=== PATIENT | female | born 1985 | race American Indian/Alaskan Native ===

== ENCOUNTER 2016-10-09 22:33 | Emergency (ER) | payer MEDICAID ==
[2016-10-10] MEDS ORDERED: NORCO 5/325 PO ONE (02:22)
--- NOTE | 2016-10-10 03:01 | Cat Scan Report ---
FINAL REPORT PROCEDURE: CT HEAD/BRAIN WO CON TECHNIQUE: Computerized tomography of the head was performed without contrast material. HISTORY: multiple sz, head injury, headache COMPARISON: No prior studies are available for comparison. FINDINGS: Skull and scalp: Normal. Paranasal sinuses: Normal. Ventricles and subarachnoid spaces: Normal. Cerebrum: No evidence of hemorrhage, acute infarction or mass . Cerebellum and brainstem: No evidence of hemorrhage, acute infarction or mass. Vasculature: Normal. Comments: None. IMPRESSION: Normal Examination
[2016-10-10 03:02] LABS: Anion Gap 15 mmol/L; BUN/Creatinine Ratio 21.11; Blood Urea Nitrogen 19 mg/dL (7-17); Calcium 8.8 mg/dL (8.4-10.2); Carbon Dioxide 19 mmol/L (22-30); Chloride 110.5 mmol/L (98-107); Glucose 97 mg/dL (65-100); Potassium 3.8 mmol/L (3.6-5.0); Sodium 141 mmol/L (137-145)
[2016-10-10 03:03] LABS: Basophils % (Auto) 0.4 % (0.0-1.8); Eosinophils % (Auto) 0.8 % (0.0-4.3); Hematocrit 38.2 % (30.3-42.9); Hemoglobin 12.7 gm/dl (10.1-14.3); Mean Corpuscular HGB Conc 33 % (30-34); Mean Corpuscular Hemoglobin 32 pg (28-32); Mean Corpuscular Volume 97 fl (79-97); Platelet Count 233 K/mm3 (140-440); Red Blood Count 3.94 M/mm3 (3.65-5.03); White Blood Count 9.2 K/mm3 (4.5-11.0)
--- NOTE | 2016-10-10 03:28 | Emergency Department Report ---
ED Seizure HPI - General Chief Complaint: Seizure Stated Complaint: SEIZURE/HEADACHE Time Seen by Provider: 10/10/16 02:10 Source: patient Mode of arrival: Ambulatory Limitations: No Limitations - History of Present Illness Initial Comments: 31-year-old female with a past medical history of seizures and previous tubal ligation presents to the hospital complains of 3 seizures today. Patient states she has complex partial seizures or "staring" seizures. Patient Fell and Hit Her Head during One Episodes Complains of Posterior Headache. Initially 7/10 upon Arrival but Now 4/10. Patient States She Had a Small, but Is Partial Seizure While in the ER Waiting to Be Seen. Her neurologist is Dr. Maravilla. She takes Trileptal, Vimpat, and Topamax for seizure and states she has been compliant. She was recently started on Carbergoline for her pitutary tumor and worries that this new med may be causing her seizure. Patient has had multiple seizures in one day but states this amount is more than usual and atypical. No visual changes, focal weakness or numbness reported. - Related Data Home Medications Medication Instructions Recorded Confirmed Last Taken Cabergoline 0.5 mg PO 2XW 10/10/16 10/10/16 Unknown Folic Acid [Folvite] 2 mg PO QDAY 10/10/16 10/10/16 Unknown Lacosamide [Vimpat] 200 mg PO BID 10/10/16 10/10/16 Unknown Perphenazine [Trilafon] 16 mg PO QDAY 10/10/16 10/10/16 Unknown Topiramate [Topamax] 200 mg PO BID 10/10/16 10/10/16 Unknown Previous Rx's Medication Instructions Recorded Last Taken Type Ibuprofen [Motrin] 800 mg PO Q8HR PRN #30 tablet 10/10/16 Unknown Rx OXcarbazepine [Trileptal] 1 dose PO BID #60 tablet 10/10/16 Unknown Rx Allergies Allergy/AdvReac Type Severity Reaction Status Date / Time No Known Allergies Allergy Verified 02/12/14 23:53 ED Review of Systems ROS: Stated complaint: SEIZURE/HEADACHE Other details as noted in HPI Comment: All other systems reviewed and negative Other: Constitutional: No fevers chills Eyes: No eye pain visual change ENT: No ear pain or throat pain Neck: Denies pain Respiratory: Denies cough wheezing shortness of breath Cardiovascular: Denies chest pain, palpitations, syncope GI: Denies abdominal pain, nausea, vomiting, diarrhea : Denies dysuria, urinary frequency, or urgency Musculoskeletal: Denies back pain, joint swelling Skin: Denies rash, lesions, erythema Neurologic:as per Psychiatric: Denies suicidal ideation, hallucinations ED Past Medical Hx - Past Medical History Previous Medical History?: Yes Hx Seizures: Yes (sees physician Dr. Espinosa) - Surgical History Past Surgical History?: Yes Additional Surgical History: Tubal ligation - Social History Smoking Status: Never Smoker Substance Use Type: None - Medications Home Medications: Home Medications Medication Instructions Recorded Confirmed Last Taken Type Cabergoline 0.5 mg PO 2XW 10/10/16 10/10/16 Unknown History Folic Acid [Folvite] 2 mg PO QDAY 10/10/16 10/10/16 Unknown History Ibuprofen [Motrin] 800 mg PO Q8HR PRN #30 tablet 10/10/16 Unknown Rx Lacosamide [Vimpat] 200 mg PO BID 10/10/16 10/10/16 Unknown History OXcarbazepine [Trileptal] 1 dose PO BID #60 tablet 10/10/16 Unknown Rx Perphenazine [Trilafon] 16 mg PO QDAY 10/10/16 10/10/16 Unknown History Topiramate [Topamax] 200 mg PO BID 10/10/16 10/10/16 Unknown History ED Physical Exam - General Limitations: No Limitations - Other Other exam information: General: No limitations, patient is alert in no acute distress Head exam: Atraumatic, normocephalic Eyes exam: Normal appearance ENT: Moist mucous membrane, normal oropharynx Neck exam: Normal inspection, full range of motion, no meningismus nontender Respiratory exam: Clear to auscultation bilateral, no wheezes, rales, crackles Cardiovascular: Normal rate and rhythm, normal heart sounds Abdomen: Soft, nondistended, and nontender, with normal bowel sounds, no rebound, or guarding Extremity: Full range of motion normal inspection no deformity Back: Normal Inspection, full range of motion, no tenderness Neurologic: Alert, oriented x3, cranial nerves intact, no motor or sensory deficit Psychiatric: normal affect, normal mood Skin: Warm, dry, intact ED Course Vital Signs 10/09/16 10/10/16 10/10/16 22:49 02:38 02:56 Temperature 98.6 F Pulse Rate 78 Respiratory 20 18 18 Rate Blood Pressure 146/97 O2 Sat by Pulse 100 100 Oximetry - Reevaluation(s) Reevaluation #1: 10/10/16 03:30 Patient treated with [place] for her headache. Pain improved 10/10/16 03:36 Reevaluation #2: 10/10/16 03:36 Trileptal 600 mg ordered prior to discharge - Consultations Consultation #1: 10/10/16 03:31 Attempted to contact patient's primary neurologist is Dr. Maravilla however, he does not have answering service and we were only able to leave a voice mail. I then called the neurology stroke team for advice on medication adjustment. Case discussed with neurologist Dr. Chang. Recommended to increase Trileptal to 600 in a.m. and 1200 and p.m. instead of 600 twice a day. Recommend initial 600 dose now prior to discharge and for patient to contact primary neurologist in the morning ED Medical Decision Making - Lab Data Result diagrams: 10/10/16 02:32 10/10/16 02:32 Lab Results 10/10/16 10/10/16 Range/Units 02:32 02:32 WBC 9.2 (4.5-11.0) K/mm3 RBC 3.94 (3.65-5.03) M/mm3 Hgb 12.7 (10.1-14.3) gm/dl Hct 38.2 (30.3-42.9) % MCV 97 (79-97) fl MCH 32 (28-32) pg MCHC 33 (30-34) % RDW 13.0 L (13.2-15.2) % Plt Count 233 (140-440) K/mm3 Lymph % (Auto) 14.3 (13.4-35.0) % [place] % (Auto) 7.0 (0.0-7.3) % Eos % (Auto) 0.8 (0.0-4.3) % Baso % (Auto) 0.4 (0.0-1.8) % Lymph # 1.3 (1.2-5.4) K/mm3 [place] # 0.6 (0.0-0.8) K/mm3 Eos # 0.1 (0.0-0.4) K/mm3 Baso # 0.0 (0.0-0.1) K/mm3 Seg Neutrophils % 77.5 H (40.0-70.0) % Seg Neutrophils # 7.1 (1.8-7.7) K/mm3 Sodium 141 (137-145) mmol/L Potassium 3.8 (3.6-5.0) mmol/L Chloride 110.5 H (98-107) mmol/L Carbon Dioxide 19 L (22-30) mmol/L Anion Gap 15 mmol/L BUN 19 H (7-17) mg/dL Creatinine 0.9 (0.7-1.2) mg/dL Estimated GFR > 60 ml/min BUN/Creatinine Ratio 21.11 % Glucose 97 (65-100) mg/dL Calcium 8.8 (8.4-10.2) mg/dL Magnesium 2.0 (1.7-2.3) mg/dL - Radiology Data Radiology results: report reviewed (ct head: normal) - Medical Decision Making CT head unremarkable. No signs of hyponatremia or hypomagnesemia as cause of seizures. I was unable to contact patient's primary neurologist but neurologist consulting software engineer recommends patient increased her current Trileptal dose. This was explained to patient and she was understanding. Patient encouraged to follow-up with her neurologist and Motrin will be provided for pain - Differential Diagnosis breakthrough seizure, medication noncompliance, intracranial injury Critical Care Time: No Critical care attestation.: If time is entered above; I have spent that time in minutes in the direct care of this critically ill patient, excluding procedure time. ED Disposition Clinical Impression: Recurrent seizures, Complex partial seizure Disposition: DISCHARGED TO HOME OR SELFCARE Is pt being admited?: No Does the pt Need Aspirin: No Condition: Stable Instructions: Epilepsy (ED) Additional Instructions: Take Motrin as needed for pain. I have increased your Trileptal dose as recommended by neurologist. Take trileptal 600mg (1 tab) in the morning and take 1200mg (2 tabs) in the evening. Continue other medication as prescribed and follow-up with the neurologist as soon as possible for evaluation Prescriptions: Ibuprofen [Motrin] 800 mg PO Q8HR PRN #30 tablet PRN Reason: Pain OXcarbazepine [Trileptal] 1 dose PO BID #60 tablet Referrals: YENI SMITH MD [Primary Care Provider] - 3-5 Days STAN MARAVILLA MD [Staff Physician] - 2-3 Days (Neurologist) Time of Disposition: 03:40
[2016-10-10] MEDS ORDERED: TRILEPTAL PO ONE (03:30)
[2016-10-10 05:01] VITALS: BP 136/84
== END 2016-10-10 04:05 | disposition home or self-care (01) ==
LOC: ED 22:33
DX: G40.209 Localization-related (focal) (partial) symptomatic epilepsy and epileptic syndromes with complex partial seizures, not intractable, without status epilepticus (principal)
CPT/HCPCS: 36415; 70450; 80048; 82962; 83735; 85025; 99284

== ENCOUNTER 2021-09-18 17:25 | Inpatient (IN) | payer MEDICAID ==
[2021-09-18] MEDS ORDERED: SODIUM CHLORIDE 0.9% 1000 ML 1,000 ML IV ONE (17:57)
--- NOTE | 2021-09-18 18:28 | Emergency Department Report ---
HPI - General Chief Complaint: Seizure Time Seen by Provider: 09/18/21 17:45 - HPI HPI: This is a 36-year-old -[place] female presents to the emergency department, brought in by her , with complaint of having multiple seizures throughout the morning and early afternoon. Patient has a history of epilepsy and a history of a pituitary tumor. The patient spoke with her neurology service and supposedly had some changes made to her medication to start this evening. However, her became concerned and brought her into the emergency department for further evaluation. Her neurologist is a Dr. Kaba. The patient is on Fycompa, Zonegran, topiramate and Trileptal. When asked how the patient feels she says "I do not know." She later admits to a mild headache. Upon initial presentation she is on the phone, once again, with a nurse for her neurologist. ED Past Medical Hx - Past Medical History Hx Seizures: Yes (sees physician Dr. Espinosa) - Surgical History Additional Surgical History: Tubal ligation - Social History Smoking Status: Never Smoker Substance Use Type: None - Medications Home Medications: Home Medications Medication Instructions Recorded Confirmed Last Taken Type Cabergoline 0.5 mg PO 2XW 10/10/16 10/10/16 Unknown History Folic Acid [Folvite] 2 mg PO QDAY 10/10/16 10/10/16 Unknown History Ibuprofen [Motrin] 800 mg PO Q8HR PRN #30 tablet 10/10/16 Unknown Rx Lacosamide [Vimpat] 200 mg PO BID 10/10/16 10/10/16 Unknown History OXcarbazepine [Trileptal] 1 dose PO BID #60 tablet 10/10/16 Unknown Rx Perphenazine (Nf) [Trilafon] 16 mg PO QDAY 10/10/16 10/10/16 Unknown History Topiramate [Topamax] 200 mg PO BID 10/10/16 10/10/16 Unknown History ED Review of Systems ROS: Stated complaint: SEIZURE Other details as noted in HPI Comment: All other systems reviewed and negative Constitutional: denies: chills, fever Eyes: denies: eye pain, vision change ENT: denies: ear pain, throat pain Respiratory: denies: cough, shortness of breath Cardiovascular: denies: chest pain, palpitations Gastrointestinal: denies: abdominal pain, vomiting Genitourinary: denies: dysuria, discharge Musculoskeletal: denies: back pain, arthralgia Skin: denies: rash, lesions Neurological: headache, other (Seizures) Physical Exam - Physical Exam Vital Signs: Vital Signs 09/18/21 09/18/21 17:41 18:08 Temperature 99.1 F Pulse Rate 104 H Respiratory 16 18 Rate Blood Pressure 170/110 [Left] O2 Sat by Pulse 100 99 Oximetry Physical Exam: GENERAL: The patient is well-developed well-nourished. HENT: Normocephalic. Atraumatic. Patient has moist mucous membranes. EYES: Extraocular motions are intact. Pupils equal reactive to light bilaterally. NECK: Supple. Trachea is midline. CHEST/LUNGS: Clear to auscultation. There is no respiratory distress noted. HEART/CARDIOVASCULAR: Regular. There is no tachycardia. There is no murmur. ABDOMEN: Abdomen is soft, nontender. Patient has normal bowel sounds. There is no abdominal distention. SKIN: Skin is warm and dry. NEURO: The patient is awake, but somewhat confused. She is cooperative with examination. No slurred speech. No facial asymmetry. MUSCULOSKELETAL: There is no tenderness or deformity. There is no limitation range of motion. ED Course Vital Signs 09/18/21 09/18/21 17:41 18:08 Temperature 99.1 F Pulse Rate 104 H Respiratory 16 18 Rate Blood Pressure 170/110 [Left] O2 Sat by Pulse 100 99 Oximetry ED Medical Decision Making - Lab Data Result diagrams: 09/18/21 18:15 09/18/21 18:15 Lab Results 09/18/21 09/18/21 09/18/21 Range/Units 18:15 18:15 18:15 WBC 8.3 (4.5-11.0) K/mm3 RBC 3.92 (3.65-5.03) M/mm3 Hgb 12.9 (10.1-14.3) gm/dl Hct 38.3 (30.3-42.9) % MCV 98 H (79-97) fl MCH 33 H (28-32) pg MCHC 34 (30-34) % RDW 13.6 (13.2-15.2) % Plt Count 315 (140-440) K/mm3 Lymph % (Auto) 10.4 L (13.4-35.0) % [place] % (Auto) 5.3 (0.0-7.3) % Eos % (Auto) 0.1 (0.0-4.3) % Baso % (Auto) 1.0 (0.0-1.8) % Lymph # (Auto) 0.9 L (1.2-5.4) K/mm3 [place] # (Auto) 0.4 (0.0-0.8) K/mm3 Eos # (Auto) 0.0 (0.0-0.4) K/mm3 Baso # (Auto) 0.1 (0.0-0.1) K/mm3 Seg Neutrophils % 83.2 H (40.0-70.0) % Seg Neutrophils # 6.9 (1.8-7.7) K/mm3 Sodium 139 (137-145) mmol/L Potassium 3.4 L (3.6-5.0) mmol/L Chloride 109.3 H (98-107) mmol/L Carbon Dioxide 17 L (22-30) mmol/L Anion Gap 16 mmol/L BUN 13 (7-17) mg/dL Creatinine 1.0 (0.6-1.2) mg/dL Estimated GFR > 60 ml/min BUN/Creatinine Ratio 13 % Glucose 119 H (65-100) mg/dL Calcium 8.7 (8.4-10.2) mg/dL Total Bilirubin 0.20 (0.1-1.2) mg/dL AST 18 (5-40) units/L ALT 17 (7-56) units/L Alkaline Phosphatase 125 (35-129) units/L Total Protein 8.1 (6.3-8.2) g/dL Albumin 4.3 (3.9-5) g/dL Albumin/Globulin Ratio 1.1 % TSH 2.070 (0.270-4.200) mlU/mL HCG, Qual (Negative) Plasma/Serum Alcohol (0-0.07) % 09/18/21 09/18/21 Range/Units 18:15 18:15 WBC (4.5-11.0) K/mm3 RBC (3.65-5.03) M/mm3 Hgb (10.1-14.3) gm/dl Hct (30.3-42.9) % MCV (79-97) fl MCH (28-32) pg MCHC (30-34) % RDW (13.2-15.2) % Plt Count (140-440) K/mm3 Lymph % (Auto) (13.4-35.0) % [place] % (Auto) (0.0-7.3) % Eos % (Auto) (0.0-4.3) % Baso % (Auto) (0.0-1.8) % Lymph # (Auto) (1.2-5.4) K/mm3 [place] # (Auto) (0.0-0.8) K/mm3 Eos # (Auto) (0.0-0.4) K/mm3 Baso # (Auto) (0.0-0.1) K/mm3 Seg Neutrophils % (40.0-70.0) % Seg Neutrophils # (1.8-7.7) K/mm3 Sodium (137-145) mmol/L Potassium (3.6-5.0) mmol/L Chloride (98-107) mmol/L Carbon Dioxide (22-30) mmol/L Anion Gap mmol/L BUN (7-17) mg/dL Creatinine (0.6-1.2) mg/dL Estimated GFR ml/min BUN/Creatinine Ratio % Glucose (65-100) mg/dL Calcium (8.4-10.2) mg/dL Total Bilirubin (0.1-1.2) mg/dL AST (5-40) units/L ALT (7-56) units/L Alkaline Phosphatase (35-129) units/L Total Protein (6.3-8.2) g/dL Albumin (3.9-5) g/dL Albumin/Globulin Ratio % TSH (0.270-4.200) mlU/mL HCG, Qual Negative (Negative) Plasma/Serum Alcohol < 0.01 (0-0.07) % - EKG Data -: EKG Interpreted by [facility] EKG shows normal: sinus rhythm, axis, intervals, QRS complexes, ST-T waves Rate: normal - EKG Data When compared to previous EKG there are: previous EKG unavailable Interpretation: normal EKG - Radiology Data Radiology results: report reviewed CT HEAD WITHOUT CONTRAST INDICATION: Seizures. TECHNIQUE: All CT scans at this location are performed using CT dose reduction for ALARA by means of automated exposure control. COMPARISON: CT 10/10/2016 FINDINGS: HEMORRHAGE: None. EXTRA- AXIAL SPACES: Normal in size and morphology for the patient's age. VENTRICULAR SYSTEM: Normal in size and morphology for the patient's age. BRAIN PARENCHYMA: No acute findings. Faint bilateral basal ganglia calcification is again noted. MIDLINE SHIFT OR HERNIATION: None. ORBITS: Normal as visualized. SOFT TISSUES OF HEAD: Normal. CALVARIUM: Normal. VISUALIZED PARANASAL SINUSES AND MASTOID AIR CELLS: Clear. ADDITIONAL FINDINGS: None. IMPRESSION: 1. No acute intracranial abnormality. 2. Bilateral basal ganglia calcifications similar to the prior. - Medical Decision Making This patient presented to the emergency department with a complaint of having multiple seizures throughout the day. Her family says that she has a history of complex partial seizures and that her seizures are not typical in appearance. At different points the patient had her mother and her at bedside and the patient exhibited some behavior that they said was consistent with her seizures. She does not have an epilepsy history and is on multiple antielliptic medications. Patient's labs have been mostly unremarkable, except for some mild hypokalemia and a bicarb of 17. I attempted to get the patient her nighttime medications in the hopes that it would stop her from having any further seizures. We were able to get her the Trilafon, but she did not get the Topamax or the Oxcarbazapine before she had some of her atypical seizures. Due to the recurrent seizures, and some type of history of a "brain tumor" that appears to be a pituitary tumor, the patient had a CT scan of the head without contrast that did not show any hemorrhage, large vessel occlusion, or any other acute process. Patient will be admitted to the hospital for neurology consultation, continued monitoring, and has been accepted for admission by the hospitalist, Dr. Sanchez. Critical Care Time: No Critical care attestation.: If time is entered above; I have spent that time in minutes in the direct care of this critically ill patient, excluding procedure time. ED Disposition Clinical Impression: Seizure disorder, Recurrent seizures Disposition: ADMITTED INPATIENT Is pt being admited?: Yes Condition: Fair Time of Disposition: 01:30
[2021-09-18 18:32] LABS: Basophils # (Auto) 0.1 K/mm3 (0.0-0.1); Eosinophils % (Auto) 0.1 % (0.0-4.3); Hematocrit 38.3 % (30.3-42.9); Hemoglobin 12.9 gm/dl (10.1-14.3); Lymphocytes # (Auto) 0.9 K/mm3 (1.2-5.4); Lymphocytes % (Auto) 10.4 % (13.4-35.0); Mean Corpuscular HGB Conc 34 % (30-34); Mean Corpuscular Volume 98 fl (79-97); Monocytes # (Auto) 0.4 K/mm3 (0.0-0.8); Monocytes % (Auto) 5.3 % (0.0-7.3); Platelet Count 315 K/mm3 (140-440); Red Blood Count 3.92 M/mm3 (3.65-5.03); Red Cell Distribution Width 13.6 % (13.2-15.2)
[2021-09-18 18:52] LABS: Alanine Aminotransferase 17 units/L (7-56); Albumin 4.3 g/dL (3.9-5); BUN/Creatinine Ratio 13; Blood Urea Nitrogen 13 mg/dL (7-17); Calcium 8.7 mg/dL (8.4-10.2); Hemolysis Index 23
[2021-09-18] MEDS ORDERED: POTASSIUM CHLORIDE ER 20 MEQ TAB PO ONE (19:05)
[2021-09-18] MEDS ORDERED: TOPIRAMATE TAB 200 MG TAB PO SCH ×2 (20:00→22:00)
[2021-09-18] MEDS ORDERED: OXcarbazepine 300 MG TAB PO ONE (20:42)
[2021-09-18] MEDS ORDERED: LORazepam 2 MG/ML VIAL ONE (20:58)
[2021-09-18] MEDS ORDERED: PERPHENAZINE 4 MG TAB PO ONE (21:00)
[2021-09-18] MEDS ORDERED: LORazepam 2 MG/ML VIAL IV ONE ×2 (21:05→23:29)
[2021-09-18] MEDS ORDERED: ZIPRASIDONE MESYLATE 20 MG VIAL IM ONE ×2 (22:02→22:03)
--- NOTE | 2021-09-19 00:03 | Cat Scan Report ---
CT HEAD WITHOUT CONTRAST INDICATION: Seizures. TECHNIQUE: All CT scans at this location are performed using CT dose reduction for ALARA by means of automated e xposure control. COMPARISON: CT 10/10/2016 FINDINGS: HEMORRHAGE: None. EXTRA-AXIAL SPACES: Normal in size and morphology for the patient's age. VENTRICULAR SYSTEM: Normal in size and morphology for the patient's age. BRAIN PARENCHYMA: No acute findings. Faint bilateral basal ganglia calcification is again noted. MIDLINE SHIFT OR HERNIATION: None. ORBITS: Normal as visualized. SOFT TISSUES OF HEAD: Normal. CALVARIUM: Normal. VISUALIZED PARANASAL SINUSES AND MASTOID AIR CELLS: Clear. ADDITIONAL FINDINGS: None. IMPRESSION: 1. No acute intracranial abnormality. 2. Bilateral basal ganglia calcifications similar to the prior. Signer Name: Delvis Dietrich MD Signed: 09/18/2021 11:58 PM Workstation Name: [id number]
[2021-09-19] MEDS ORDERED: MAGNESIUM HYDROXIDE (MOM) ORAL LIQD UDC PO PRN (01:08)
[2021-09-19] MEDS ORDERED: ONDANSETRON 4 MG/2 ML INJ IV PRN (01:08)
[2021-09-19] MEDS ORDERED: ACETAMINOPHEN 325 MG TAB PO PRN (01:08)
[2021-09-19] MEDS ORDERED: MORPHINE 2 MG/1 ML INJ IV PRN (01:08)
[2021-09-19] MEDS ORDERED: MORPHINE 4 MG/1 ML INJ IV PRN (01:08)
--- NOTE | 2021-09-19 01:22 | History and Physical Report ---
History of Present Illness Date of examination: 09/19/21 Date of admission: 09/19/2021 Chief complaint: Seizures History of present illness: 36-year-old -[place] female brought into the emergency room today accompanied by her having had multiple episodes of seizures at home prior to arrival in the emergency room. Patient has known history of pituitary tumor and epilepsy. Patient was said to have had some changes in her medications lately and patient has been quite compliant with her medications. However, patient's became very concerned secondary to the multiple seizures and therefore decided to bring patient to the emergency room. Most of the history was obtained from the ER staff as patient is unable to give any history at this time and family was not available. Patient has had some Ativan prior to this history and physical. She was however able to nod her head to a few questions. Current medications includes: Fycompa, Zonegran, topiramate and Trileptal. Patient follows up with Dr. Kaba. Work-up in the emergency room today, CT scan of the head shows no acute intracranial abnormality. There are bilateral basal ganglia calcifications similar to the prior. Past History Past Medical History: seizures Past Surgical History: Other (Tubal Ligation) Social history: no significant social history Family history: no significant family history Medications and Allergies Allergies Allergy/AdvReac Type Severity Reaction Status Date / Time No Known Allergies Allergy Verified 02/12/14 23:53 Home Medications Medication Instructions Recorded Confirmed Last Taken Type Cabergoline 0.5 mg PO 2XW 10/10/16 10/10/16 Unknown History Folic Acid [Folvite] 2 mg PO QDAY 10/10/16 10/10/16 Unknown History Ibuprofen [Motrin] 800 mg PO Q8HR PRN #30 tablet 10/10/16 Unknown Rx Lacosamide [Vimpat] 200 mg PO BID 10/10/16 10/10/16 Unknown History OXcarbazepine [Trileptal] 1 dose PO BID #60 tablet 10/10/16 Unknown Rx Perphenazine (Nf) [Trilafon] 16 mg PO QDAY 10/10/16 10/10/16 Unknown History Topiramate [Topamax] 200 mg PO BID 10/10/16 10/10/16 Unknown History Active Meds: Active Medications Acetaminophen (Acetaminophen 325 Mg Tab) 650 mg PO Q4H PRN PRN Reason: Pain MILD(1-3)/Fever >100.5/VOGT Sodium Chloride (Nacl 0.9% 1000 Ml) 1,000 mls @ 125 mls/hr IV ONCE ONE Stop: 09/19/21 01:56 Last Admin: 09/18/21 18:47 Dose: 125 mls/hr Morphine Sulfate (Morphine 2 Mg/1 Ml Inj) 2 mg IV Q4H PRN PRN Reason: Pain, Moderate (4-6) Ondansetron HCl (Ondansetron 4 Mg/2 Ml Inj) 4 mg IV Q8H PRN PRN Reason: Nausea And Vomiting Sodium Chloride (Sodium Chloride 0.9% 10 Ml Flush Syringe) 10 ml IV BID LEANDER Sodium Chloride (Sodium Chloride 0.9% 10 Ml Flush Syringe) 10 ml IV PRN PRN PRN Reason: LINE FLUSH Topiramate (Topiramate Tab 200 Mg Tab) 200 mg PO 2200 [place]ANDER Review of Systems ROS unobtainable: due to mental status Exam - Constitutional Vitals: Temp Pulse Resp BP Pulse Ox 97.9 F 91 H 19 150/100 100 09/19/21 00:58 09/19/21 00:58 09/19/21 00:58 09/19/21 00:58 09/19/21 00:58 General appearance: Present: no acute distress, well-nourished - EENT Eyes: Present: PERRL, EOM intact. Absent: scleral icterus ENT: hearing intact, clear oral mucosa, dentition normal - Neck Neck: Present: supple, normal ROM - Respiratory Respiratory effort: normal Respiratory: bilateral: CTA - Cardiovascular Rhythm: regular Heart Sounds: Present: S1 & S2. Absent: gallop, systolic murmur, diastolic murmur, rub - Extremities Extremities: no ischemia, pulses intact, pulses symmetrical, No edema, normal temperature, normal color, Full ROM Peripheral Pulses: within normal limits - Abdominal General gastrointestinal: Present: soft, non-tender, non-distended, normal bowel sounds. Absent: mass - Integumentary Integumentary: Present: clear, warm, dry, normal turgor. Absent: rash - Musculoskeletal Musculoskeletal: strength equal bilaterally - Psychiatric Psychiatric: appropriate mood/affect, cooperative - Neurologic Neurologic: CNII-XII intact, no focal deficits, moves all extremities Results - Labs CBC & Chem 7: 09/18/21 18:15 09/18/21 18:15 Labs: Abnormal lab results 09/18/21 09/18/21 Range/Units 18:15 18:15 MCV 98 H (79-97) fl MCH 33 H (28-32) pg Lymph % (Auto) 10.4 L (13.4-35.0) % Lymph # (Auto) 0.9 L (1.2-5.4) K/mm3 Seg Neutrophils % 83.2 H (40.0-70.0) % Potassium 3.4 L (3.6-5.0) mmol/L Chloride 109.3 H (98-107) mmol/L Carbon Dioxide 17 L (22-30) mmol/L Glucose 119 H (65-100) mg/dL Assessment and Plan - Patient Problems (1) Seizure disorder Current Visit: Yes Status: Acute Plan to address problem: Patient will be placed on seizure precautions. We will resume her on her routine home medications once able to tolerate oral intake. Consult placed to neurology for evaluation. (2) DVT prophylaxis Current Visit: Yes Status: Acute Plan to address problem: Patient placed on subcutaneous heparin. (3) Full code status Current Visit: Yes Status: Acute Plan to address problem: Patient is full code.
[2021-09-19] MEDS: TOPIRAMATE TAB 200 MG TAB PO SCH ×2 (11:00→22:41)
[2021-09-19] MEDS ORDERED: PERPHENAZINE 8 MG PO SCH (13:15)
[2021-09-19] MEDS: FOLIC ACID 1 MG TAB PO SCH (13:42)
[2021-09-19] MEDS: LACOSAMIDE 100 MG TAB PO SCH ×2 (13:42→22:41)
[2021-09-19] MEDS ORDERED: OXcarbazepine 150 MG TAB PO SCH (14:00)
--- NOTE | 2021-09-19 15:07 | Magnetic Resonance Report ---
MRI BRAIN WITHOUT CONTRAST INDICATION / CLINICAL INFORMATION: hx of pituitary tumor. Seizures TECHNIQUE: Multisequence, multiplanar images were obtained. COMPARISON: CT brain 09/18/2021 FINDINGS: CEREBRAL and CEREBELLAR HEMISPHERES: No evidence of mass or mass effect. No midline shift. No acute hemorrhage. No diffusion restriction to suggest acute infarct. No extra-axial fluid collection. S ellar tissue appears unremarkable although pituitary protocol was not performed. No obvious pituitary mass. The medial temporal lobes are symmetric and unremarkable. VENTRICLES: Normal in size and configuration for age. VISUALIZED ORBITS: No significant abnormality. VISUALIZED PARANASAL SINUSES: No significant abnormality. ADDITIONAL FINDINGS: None. IMPRESSION: Unremarkable MR brain without contrast. Signer Name: Vu Man Jr, MD Signed: 09/19/2021 3:01 PM Workstation Name: [id number]
--- NOTE | 2021-09-19 16:02 | Consultation ---
History of Present Illness Consult date: 09/19/21 Reason for Consult: Seizures Chief complaint: Kendal Cleary is a 36 y/o Female w/ medical intractable epilepsy and a pituitary tumor. She presented to [facility] on yesterday for management of breakthrough seizures. She has had seizures since she was 15 years old. She has taken a myriad of seizure medications, neither of which have provided seizure freedom. She will be undergoing deep brain stimulation at [facility] in the near future for management of her seizures. She is currently taking Zonisamide, Trileptal, Topiramate, and Perphenazine. Her mother, who is with her at bedside, is most concerned about her post-ictal state where she is very combative and irritable. Ms. Licea denies headaches, nausea, vomiting or acute changes in her mental status. She has undergone CT and MRI examination of her brain, which were both negative. Past History Past Medical History: seizures Past Surgical History: Other (Tubal Ligation) Social history: no significant social history Family history: no significant family history Medications and Allergies Allergies Allergy/AdvReac Type Severity Reaction Status Date / Time No Known Allergies Allergy Verified 09/19/21 11:00 Home Medications Medication Instructions Recorded Confirmed Last Taken Type Topiramate [Topamax] 200 mg PO BID 10/10/16 09/19/21 09/18/21 History Bromocriptine Mesylate [Parlodel] 10 mg PO HS 09/19/21 09/19/21 09/18/21 History OXcarbazepine [Trileptal] 900 mg PO BID 09/19/21 09/19/21 09/18/21 History Perphenazine 24 mg PO HS 09/19/21 09/19/21 09/18/21 History Zonisamide 300 mg PO 09/19/21 09/19/21 09/18/21 History Active Meds: Active Medications Acetaminophen (Acetaminophen 325 Mg Tab) 650 mg PO Q4H PRN PRN Reason: Pain MILD(1-3)/Fever >100.5/VOGT Folic Acid (Folic Acid 1 Mg Tab) 2 mg PO QDAY [facility] Last Admin: 09/19/21 13:42 Dose: 2 mg Lacosamide (Lacosamide 100 Mg Tab) 200 mg PO Q12HR [facility] Last Admin: 09/19/21 13:42 Dose: 200 mg Magnesium Hydroxide (Magnesium Hydroxide (Mom) Oral Liqd Udc) 30 ml PO Q4H PRN PRN Reason: Constipation Morphine Sulfate (Morphine 2 Mg/1 Ml Inj) 2 mg IV Q4H PRN PRN Reason: Pain, Moderate (4-6) Morphine Sulfate (Morphine 4 Mg/1 Ml Inj) 4 mg IV Q4H PRN PRN Reason: Pain , Severe (7-10) Ondansetron HCl (Ondansetron 4 Mg/2 Ml Inj) 4 mg IV Q8H PRN PRN Reason: Nausea And Vomiting Oxcarbazepine (Oxcarbazepine 300 Mg Tab) 600 mg PO BID [facility] Perphenazine (Perphenazine 4 Mg Tab) 16 mg PO DAILY [facility] Sodium Chloride (Sodium Chloride 0.9% 10 Ml Flush Syringe) 10 ml IV BID [facility] Last Admin: 09/19/21 09:55 Dose: 10 ml Sodium Chloride (Sodium Chloride 0.9% 10 Ml Flush Syringe) 10 ml IV PRN PRN PRN Reason: LINE FLUSH Topiramate (Topiramate Tab 200 Mg Tab) 200 mg PO Q12HR [facility] Last Admin: 09/19/21 11:00 Dose: 200 mg Review of Systems All systems: negative (what is specified in HPI) Physical Examination - Vital Signs Vital Signs: Vital Signs Temp Pulse Resp BP Pulse Ox 99.1 F 104 H 16 170/110 100 09/18/21 17:41 09/18/21 17:41 09/18/21 17:41 09/18/21 17:41 09/18/21 17:41 - Physical Exam Narrative exam: seen and examined no acute distress NC/AT breathing non-labored abdomen soft no cyanosis or clubbing A&Ox3 CNII-XII Intact motor strength full sensation intact no drift Results - Laboratory Findings CBC and BMP: 09/18/21 18:15 09/18/21 18:15 Abnormal Lab Findings: Abnormal Labs 09/18/21 09/18/21 18:15 18:15 MCV 98 H MCH 33 H Lymph % (Auto) 10.4 L Lymph # (Auto) 0.9 L Seg Neutrophils % 83.2 H Potassium 3.4 L Chloride 109.3 H Carbon Dioxide 17 L Glucose 119 H Assessment and Plan 36 y/o Female w/ medical intractable epilepsy, no acute findings on MRI -no further NSGY intervention -Neurology consultation for seizure management -patient may follow up with Neurosurgeon at [place] -please notify if questions/concerns
[2021-09-19] MEDS: PERPHENAZINE 4 MG TAB PO SCH (17:35)
[2021-09-19] MEDS ORDERED: NON-FORMULARY EACH (Lacosamide [Vimpat] 200 MG Tablet) PO SCH (22:00)
[2021-09-19] MEDS ORDERED: NON-FORMULARY EACH (Oxcarbazepine [Trileptal] 600 MG Tablet) PO SCH (22:00)
[2021-09-19] MEDS ORDERED: OXcarbazepine 300 MG TAB PO SCH (22:00)
[2021-09-19] MEDS: OXcarbazepine 300 MG TAB PO SCH (22:41)
--- NOTE | 2021-09-19 23:02 | Event Note ---
Date: 09/19/21 Patient was seen and examined at the bedside. Had a father, family is concerned that patient may have bipolar disorder like her mom. Mental health evaluation ordered at his request. Her father as well. Patient is not aware of any medications that she has been taking. Neurology and neurosurgery consulted.
[2021-09-20 05:17] LABS: Basophils # (Auto) 0.2 K/mm3 (0.0-0.1); Basophils % (Auto) 2.8 % (0.0-1.8); Eosinophils # (Auto) 0.3 K/mm3 (0.0-0.4); Eosinophils % (Auto) 3.6 % (0.0-4.3); Hematocrit 37.9 % (30.3-42.9); Hemoglobin 12.9 gm/dl (10.1-14.3); Lymphocytes # (Auto) 1.2 K/mm3 (1.2-5.4); Lymphocytes % (Auto) 15.5 % (13.4-35.0); Mean Corpuscular HGB Conc 34 % (30-34); Mean Corpuscular Volume 97 fl (79-97); Monocytes # (Auto) 0.8 K/mm3 (0.0-0.8); Monocytes % (Auto) 11.1 % (0.0-7.3); Platelet Count 270 K/mm3 (140-440); Red Blood Count 3.89 M/mm3 (3.65-5.03); Red Cell Distribution Width 13.5 % (13.2-15.2)
[2021-09-20 05:35] LABS: BUN/Creatinine Ratio 16; Blood Urea Nitrogen 16 mg/dL (7-17); Calcium 8.2 mg/dL (8.4-10.2); Hemolysis Index 6
[2021-09-20] MEDS: OXcarbazepine 300 MG TAB PO SCH (09:49)
[2021-09-20] MEDS: TOPIRAMATE TAB 200 MG TAB PO SCH (09:50)
[2021-09-20] MEDS: PERPHENAZINE 4 MG TAB PO SCH (09:50)
[2021-09-20] MEDS: FOLIC ACID 1 MG TAB PO SCH (09:50)
[2021-09-20] MEDS: LACOSAMIDE 100 MG TAB PO SCH (09:51)
--- NOTE | 2021-09-20 13:12 | Electrocardiograph Report ---
[facility] Test Date: 2021-09-18 Test Time: 18:33:30 Pat Name: CHANTAL SCHUMACHER SYPHO Department: Room: A371 1 Gender: F Dog Licenser: JOSE ANGEL : 1985 Requested By: KRYSTAL PENALOZA Order Number: [id number] Reading MD: Toma Plascencia Measurements Intervals Welches Rate: 95 P: 63 WY: 150 QRS: 17 QRSD: 83 T: 13 QT: 358 QTc: 452 Interpretive Statements Sinus rhythm Left atrial enlargement No previous ECG available for comparison Electronically Signed On 09-20-2021 13:12:31 EST by Toma Plascencia
[2021-09-20 13:34] VITALS: BP 137/85
--- NOTE | 2021-09-20 14:51 | Progress Note ---
Hospitalist Physical - Constitutional Vitals: Temp Pulse Resp BP Pulse Ox 98.7 F 81 22 137/85 99 09/20/21 11:11 09/20/21 11:11 09/20/21 11:11 09/20/21 11:11 09/20/21 11:11 General appearance: Present: no acute distress, well-nourished Results - Labs CBC & Chem 7: 09/20/21 04:57 09/20/21 04:57 Labs: Laboratory Last Values WBC 7.6 K/mm3 (4.5-11.0) 09/20/21 04:57 RBC 3.89 M/mm3 (3.65-5.03) 09/20/21 04:57 Hgb 12.9 gm/dl (10.1-14.3) 09/20/21 04:57 Hct 37.9 % (30.3-42.9) 09/20/21 04:57 MCV 97 fl (79-97) 09/20/21 04:57 MCH 33 pg (28-32) H 09/20/21 04:57 MCHC 34 % (30-34) 09/20/21 04:57 RDW 13.5 % (13.2-15.2) 09/20/21 04:57 Plt Count 270 K/mm3 (140-440) 09/20/21 04:57 Lymph % (Auto) 15.5 % (13.4-35.0) 09/20/21 04:57 [place] % (Auto) 11.1 % (0.0-7.3) H 09/20/21 04:57 Eos % (Auto) 3.6 % (0.0-4.3) 09/20/21 04:57 Baso % (Auto) 2.8 % (0.0-1.8) H 09/20/21 04:57 Lymph # (Auto) 1.2 K/mm3 (1.2-5.4) 09/20/21 04:57 [place] # (Auto) 0.8 K/mm3 (0.0-0.8) 09/20/21 04:57 Eos # (Auto) 0.3 K/mm3 (0.0-0.4) 09/20/21 04:57 Baso # (Auto) 0.2 K/mm3 (0.0-0.1) H 09/20/21 04:57 Seg Neutrophils % 67.0 % (40.0-70.0) 09/20/21 04:57 Seg Neutrophils # 5.1 K/mm3 (1.8-7.7) 09/20/21 04:57 Sodium 142 mmol/L (137-145) 09/20/21 04:57 Potassium 3.6 mmol/L (3.6-5.0) 09/20/21 04:57 Chloride 111.2 mmol/L (98-107) H 09/20/21 04:57 Carbon Dioxide 18 mmol/L (22-30) L 09/20/21 04:57 Anion Gap 16 mmol/L 09/20/21 04:57 BUN 16 mg/dL (7-17) 09/20/21 04:57 Creatinine 1.0 mg/dL (0.6-1.2) 09/20/21 04:57 Estimated GFR > 60 ml/min 09/20/21 04:57 BUN/Creatinine Ratio 16 % 09/20/21 04:57 Glucose 92 mg/dL (65-100) 09/20/21 04:57 Calcium 8.2 mg/dL (8.4-10.2) L 09/20/21 04:57 Total Bilirubin 0.20 mg/dL (0.1-1.2) 09/18/21 18:15 AST 18 units/L (5-40) 09/18/21 18:15 ALT 17 units/L (7-56) 09/18/21 18:15 Alkaline Phosphatase 125 units/L (35-129) 09/18/21 18:15 Total Protein 8.1 g/dL (6.3-8.2) 09/18/21 18:15 Albumin 4.3 g/dL (3.9-5) 09/18/21 18:15 Albumin/Globulin Ratio 1.1 % 09/18/21 18:15 TSH 2.070 mlU/mL (0.270-4.200) 09/18/21 18:15 HCG, Qual Negative (Negative) 09/18/21 18:15 Plasma/Serum Alcohol < 0.01 % (0-0.07) 09/18/21 18:15 [place]/IV: Voiding Method Toilet Active Medications - Current Medications Current Medications: Generic Name Dose Route Start Last Admin Trade Name Freq PRN Reason Stop Dose Admin Acetaminophen 650 mg 09/19/21 01:08 Acetaminophen 325 Mg Tab PO Q4H PRN Pain MILD(1-3)/Fever >100.5/VOGT Folic Acid 2 mg 09/19/21 14:00 09/20/21 09:50 Folic Acid 1 Mg Tab PO 2 mg QDAY [facility] Administration Lacosamide 200 mg 09/19/21 14:00 09/20/21 09:51 Lacosamide 100 Mg Tab PO Not Given Q12HR [facility] Magnesium Hydroxide 30 ml 09/19/21 01:08 Magnesium Hydroxide (Mom) Oral Liqd Udc PO Q4H PRN Constipation Morphine Sulfate 2 mg 09/19/21 01:08 Morphine 2 Mg/1 Ml Inj IV Q4H PRN Pain, Moderate (4-6) Morphine Sulfate 4 mg 09/19/21 01:08 Morphine 4 Mg/1 Ml Inj IV Q4H PRN Pain , Severe (7-10) Ondansetron HCl 4 mg 09/19/21 01:08 Ondansetron 4 Mg/2 Ml Inj IV Q8H PRN Nausea And Vomiting Oxcarbazepine 600 mg 09/19/21 22:00 09/20/21 09:49 Oxcarbazepine 300 Mg Tab PO 600 mg BID [facility] Administration Perphenazine 16 mg 09/19/21 16:00 09/20/21 09:50 Perphenazine 4 Mg Tab PO 16 mg DAILY [facility] Administration Sodium Chloride 10 ml 09/19/21 10:00 09/20/21 09:51 Sodium Chloride 0.9% 10 Ml Flush Syringe IV 10 ml BID [facility] Administration Sodium Chloride 10 ml 09/19/21 01:08 Sodium Chloride 0.9% 10 Ml Flush Syringe IV PRN PRN LINE FLUSH Topiramate 200 mg 09/19/21 10:00 09/20/21 09:50 Topiramate Tab 200 Mg Tab PO 200 mg Q12HR [facility] Administration
--- NOTE | 2021-09-20 15:10 | Consultation ---
History of Present Illness Consult date: 09/20/21 History of present illness: Ms Vinayak Cleary is a 36 y/o Female w/ medical intractable epilepsy and a pituitary tumor. She presented to [facility] on yesterday for management of breakthrough seizures. She has had seizures since she was 15 years old. She has taken a myriad of seizure medications, neither of which have provided seizure freedom. She will be undergoing deep brain stimulation at [facility] in the near future for management of her seizures. She is currently taking Zonisamide, Trileptal, Topiramate, and Perphenazine. Her mother, who is with her at bedside, is most concerned about her post-ictal state where she is very combative and irritable. Ms. Licea denies headaches, nausea, vomiting or acute changes in her mental status. She has undergone CT and MRI examination of her brain, which were both negative. The patient has been having seizure ( Aug 2021 ). Past History Past Medical History: seizures Past Surgical History: Other (Tubal Ligation) Social history: no significant social history Family history: no significant family history Medications and Allergies Allergies Allergy/AdvReac Type Severity Reaction Status Date / Time No Known Allergies Allergy Verified 09/19/21 11:00 Home Medications Medication Instructions Recorded Confirmed Last Taken Type Topiramate [Topamax] 200 mg PO BID 10/10/16 09/19/21 09/18/21 History Bromocriptine Mesylate [Parlodel] 10 mg PO HS 09/19/21 09/19/21 09/18/21 History OXcarbazepine [Trileptal] 900 mg PO BID 09/19/21 09/19/21 09/18/21 History Perphenazine 24 mg PO HS 09/19/21 09/19/21 09/18/21 History Zonisamide 300 mg PO HS 09/19/21 09/19/21 09/18/21 History Active Meds: Active Medications Acetaminophen (Acetaminophen 325 Mg Tab) 650 mg PO Q4H PRN PRN Reason: Pain MILD(1-3)/Fever >100.5/VOGT Bromocriptine Mesylate (Bromocriptine 2.5 Mg Tab) 5 mg PO QHS [facility] Folic Acid (Folic Acid 1 Mg Tab) 2 mg PO QDAY [facility] Last Admin: 09/20/21 09:50 Dose: 2 mg Magnesium Hydroxide (Magnesium Hydroxide (Mom) Oral Liqd Udc) 30 ml PO Q4H PRN PRN Reason: Constipation Morphine Sulfate (Morphine 2 Mg/1 Ml Inj) 2 mg IV Q4H PRN PRN Reason: Pain, Moderate (4-6) Morphine Sulfate (Morphine 4 Mg/1 Ml Inj) 4 mg IV Q4H PRN PRN Reason: Pain , Severe (7-10) Ondansetron HCl (Ondansetron 4 Mg/2 Ml Inj) 4 mg IV Q8H PRN PRN Reason: Nausea And Vomiting Oxcarbazepine (Oxcarbazepine 300 Mg Tab) 600 mg PO BID [facility] Last Admin: 09/20/21 09:49 Dose: 600 mg Perphenazine (Perphenazine 4 Mg Tab) 16 mg PO DAILY [facility] Last Admin: 09/20/21 09:50 Dose: 16 mg Sodium Chloride (Sodium Chloride 0.9% 10 Ml Flush Syringe) 10 ml IV BID [facility] Last Admin: 09/20/21 09:51 Dose: 10 ml Sodium Chloride (Sodium Chloride 0.9% 10 Ml Flush Syringe) 10 ml IV PRN PRN PRN Reason: LINE FLUSH Topiramate (Topiramate Tab 200 Mg Tab) 200 mg PO Q12HR [facility] Last Admin: 09/20/21 09:50 Dose: 200 mg Physical Examination - Vital Signs Vital Signs: Vital Signs Temp Pulse Resp BP Pulse Ox 99.1 F 104 H 16 170/110 100 09/18/21 17:41 09/18/21 17:41 09/18/21 17:41 09/18/21 17:41 09/18/21 17:41 - Physical Exam Narrative exam: The patient is alert , moves aff 4 extremity . Gait is not tested . Results - Laboratory Findings CBC and BMP: 09/20/21 04:57 09/20/21 04:57 Abnormal Lab Findings: Abnormal Labs 09/18/21 09/18/21 09/20/21 18:15 18:15 04:57 MCV 98 H MCH 33 H 33 H Lymph % (Auto) 10.4 L [place] % (Auto) 11.1 H Baso % (Auto) 2.8 H Lymph # (Auto) 0.9 L Baso # (Auto) 0.2 H Seg Neutrophils % 83.2 H Potassium 3.4 L Chloride 109.3 H Carbon Dioxide 17 L Glucose 119 H Calcium 09/20/21 04:57 MCV MCH Lymph % (Auto) [place] % (Auto) Baso % (Auto) Lymph # (Auto) Baso # (Auto) Seg Neutrophils % Potassium Chloride 111.2 H Carbon Dioxide 18 L Glucose Calcium 8.2 L Assessment and Plan 1. Refractory Seizure ( stable in 48 hours ). 2. Continue All Home Medications . 3. Discussed with patient to See Dr. Ernie QIU at [facility] [place] for further discussion and management of Seizures . 4. Patient is clinically stable . 5. I have discussed with patient and mother to follow up with [place] in 1-2 daysa . Call Back With Questions . Dr. Cole
--- NOTE | 2021-09-20 15:34 | Discharge Summary ---
Providers - Providers Date of Admission: 09/19/21 01:08 Attending physician: AYE PUGH MD 09/19/21 11:45 Consult to Mental Health [CONS] Routine Reason For Exam: family concern for mood disorder 09/19/21 13:02 Consult to Physician [CONS] Routine Comment: Consulting Provider: BERTHA HUBBARD II Physician Instructions: Reason For Exam: hx of seizure and pituitary tumor 09/20/21 10:00 Telemedicine [[facility] Consult Order] [CONS] ONCE Comment: Consulting Provider: Reason For Exam: seizure dz Primary care physician: SUMA CHRISTENSEN Hospitalization Condition: Fair Disposition: 30 STILL A PATIENT Exam - Constitutional Vitals: Temp Pulse Resp BP Pulse Ox 98.7 F 81 22 137/85 99 09/20/21 11:11 09/20/21 11:11 09/20/21 11:11 09/20/21 11:11 09/20/21 11:11 Plan Care Plan Goals: Please follow-up with your neurologist as soon as possible. Continue to take all your medications as prescribed. Should you have any further seizures please report to [facility] or [place] so that you can be seen by the Neurosurgeon who will be performing the brain stimulator procedure. Follow up with: SUMA CHRISTENSEN JR, MD [Primary Care Provider] - 3-5 Days
[2021-09-20] MEDS ORDERED: BROMOCRIPTINE 2.5 MG TAB PO SCH (22:00)
== END 2021-09-20 16:29 | disposition home or self-care (01) | DRG 101 ==
LOC: ED 17:25 → 3A 09-19 01:08
PROVIDERS: ADMIT Internal Medicine Geriatric Medicine; ATTEND Student in an Organized Health Care Education/Training Program
DX: G40.909 Epilepsy, unspecified, not intractable, without status epilepticus (principal); Z98.51 Tubal ligation status
CPT/HCPCS: 36415; 70450; 70551; 80048; 80053; 80320; 84443; 84703; 85025; 93005; 93010; 95819; G0378; Q0162; G0480; J2060; J3486; J7030